=== PATIENT | female | born 1960 | race Caucasian/White ===

== ENCOUNTER → 2016-10-07 | Outpatient (CLI) | payer OTHER ==
[~2016-10-07] MED LIST: ACET-2321 PO; HYDR-4246 PO; MELO-32 PO; ONDA4TAB4 PO
== END ==
LOC: WC.BC 14:20
PROVIDERS: ATTEND Family Medicine
DX: N63 Unspecified lump in breast (principal); N64.59 Other signs and symptoms in breast